=== PATIENT | female | born 1960 | race Caucasian/White ===

== ENCOUNTER 2024-07-29 05:04 | Emergency (ER) | payer MEDICAID ==
[~2024-07-29] VITALS: Ht 165.1 cm; Wt 39.9 kg
[2024-07-29 06:05] LABS: BASOPHILS % (AUTO) 0.4 % (0-1); EOSINOPHILS # (AUTO) 0.2 X10'3 (0-0.9); EOSINOPHILS % (AUTO) 1.7 % (0-6); HEMATOCRIT 40.8 % (35.0-45.0); LYMPHOCYTES # (AUTO) 1.4 X10'3 (1.1-4.8); MEAN CORPUSCULAR HEMOGLOBIN 28.8 PG (27.0-31.0); MEAN CORPUSCULAR VOLUME 90.1 FL (78-98); MEAN PLATELET VOLUME 9.5 FL (7.4-10.4); MONOCYTES # (AUTO) 0.6 X10'3 (0-0.9); MONOCYTES % (AUTO) 5.4 % (2-12); NEUTROPHILS # (AUTO) 8.7 X10'3 (1.8-7.7); NEUTROPHILS % (AUTO) 79.5 % (42-75); PLATELET COUNT 157 X10'3 (140-440); RED BLOOD COUNT 4.53 X10'6 (4.20-5.60); RED CELL DISTRIBUTION WIDTH 15.2 % (11.5-14.5)
[2024-07-29 06:27] LABS: ALANINE AMINOTRANSFERASE 14 U/L (12-78); ALBUMIN 3.4 G/DL (3.4-5.0); ALBUMIN/GLOBULIN RATIO 0.8 (1.1-1.5); ALKALINE PHOSPHATASE 110 IU/L (46-116); ANION GAP 6 (8-16); ASPARTATE AMINO TRANSFERASE 14 U/L (10-37); BILIRUBIN,TOTAL 0.2 MG/DL (0.1-1.0); BLOOD UREA NITROGEN 19 MG/DL (7-18); BUN/CREATININE RATIO 18.3 (10.0-20.0); CALCIUM 8.7 MG/DL (8.5-10.1); CHLORIDE 106 MMOL/L (99-107); CREATININE 1.04 MG/DL (0.40-0.90); GLUCOSE 98 MG/DL (70-104); SODIUM 144 MMOL/L (135-145); TOTAL CARBON DIOXIDE 31.8 MMOL/L (24-32); TOTAL PROTEIN 7.5 G/DL (6.4-8.2); eCRCL 35 ML/MIN; eGFR 54 ML/MIN
[2024-07-29 06:31] LABS: PRO BRAIN NATRIURETIC PEPTIDE 83 PG/ML (0-125)
[2024-07-29] MEDS: methylPREDNISolone sod succ 125mg/2ml vial IV ONE (06:38)
[2024-07-29] MEDS: ipratropium/albuterol 3ml nebule NEB ONE (07:07)
[2024-07-29 07:11] VITALS: PULSE 69; RESP 18; O2SAT 94
[2024-07-29 07:16] VITALS: PULSE 71; RESP 22; O2SAT 99
[2024-07-29] MEDS: CefTRIAXone 2gm/D5W 50ml BAG 50 ML IV ONE (07:48)
[2024-07-29] MEDS: azithromycin 250mg tablet PO ONE (07:51)
[2024-07-29] MEDS ORDERED: PRED20TA PO (08:28)
[2024-07-29] MEDS ORDERED: DOXY100C43 PO (08:28)
[2024-07-29] MEDS ORDERED: AMOX-101 PO (08:28)
[2024-07-29 08:36] VITALS: BP 153/103; PULSE 76; RESP 13; O2SAT 95
== END 2024-07-29 08:28 | disposition left against medical advice (07) ==
LOC: ER 05:04
DX: J18.9 Pneumonia, unspecified organism (principal); F17.210 Nicotine dependence, cigarettes, uncomplicated; Z20.822 Contact with and (suspected) exposure to COVID-19; Z88.5 Allergy status to narcotic agent; Z79.52 Long term (current) use of systemic steroids
CPT/HCPCS: 36415; 71045; 80053; 83880; 84145; 84484; 85025; 87502; 87503; 87811; 93005; 94640; 96365; 96375; 99285; J0696; J2919; 94760